=== PATIENT | female | born 1955 | race American Indian/Alaskan Native ===

== ENCOUNTER 2016-11-13 21:51 | Emergency (ER) | payer MEDICARE ==
[2016-11-13 23:47] LABS: Basophils % (Auto) 0.5 % (0.0-1.8); Hematocrit 34.8 % (30.3-42.9); Hemoglobin 11.4 gm/dl (10.1-14.3); Mean Corpuscular HGB Conc 33 % (30-34); Mean Corpuscular Hemoglobin 29 pg (28-32); Mean Corpuscular Volume 87 fl (79-97); Platelet Count 290 K/mm3 (140-440); Red Blood Count 3.99 M/mm3 (3.65-5.03); Red Cell Distribution Width 15.1 % (13.2-15.2)
[2016-11-14] LABS: BUN/Creatinine Ratio 10.66; Chloride 102.7 mmol/L (98-107); Potassium 4.6 mmol/L (3.6-5.0)
[2016-11-14 02:33] LABS: Urine Drugs of Abuse Note Disclamer
[2016-11-14 03:08] LABS: Bacteria,Urine 1+ /HPF (Negative); Bilirubin,Urine NEG (Negative); Blood,Urine NEG (Negative); Ketones,Urine TR mg/dL (Negative); Leukocyte Esterase,Urine SM (Negative); Mucus,Urine 1+ /HPF; Nitrite,Urine NEG (Negative)
[2016-11-14] MEDS ORDERED: HALDOL PO SCH ×2 (22:00→23:00)
--- NOTE | 2016-11-14 22:11 | Emergency Department Report ---
ED General Adult HPI - General Chief complaint: Psych Stated complaint: MH EVAL Time Seen by Provider: 11/14/16 22:08 Source: patient, RN notes reviewed Mode of arrival: Ambulatory Limitations: Other (patient is disorganized, actively psychotic, poor historian) - History of Present Illness Initial comments: This is a 60-year-old female. She is previously unknown to me. Has a past medical history of hypertension, unspecified psychiatric disease. Presents to the ER with psychiatric complaints. Requests an injection of her psychiatric medication. She is worried that her Haldol has crack in it, and that her quetiapine has "reefer" in it. Patient denies headache, neck pain, abdominal pain, chest pain, shortness of breath. She denies irritative and obstructive urinary symptoms. She denies access to guns and firearms.s. Patient cannot describe exacerbating or relieving factors. -: unknown Radiation: other (per history of present illness) Quality: other (history of present illness) Consistency: other (as per history of present illness) Improves with: other ( as per history of present illness) Worsens with: other (as per history of present illness) - Related Data Home Medications Medication Instructions Recorded Confirmed Last Taken Benztropine [Cogentin] 2 mg PO BID 11/14/16 11/14/16 11/13/16 Haloperidol [Haldol] 8 mg PO BID 11/14/16 11/14/16 11/13/16 Lisinopril [Zestril TAB] 40 mg PO QDAY 11/14/16 11/14/16 11/13/16 QUEtiapine [SEROquel] 400 mg PO BID 11/14/16 11/14/16 11/13/16 Allergies Allergy/AdvReac Type Severity Reaction Status Date / Time No Known Allergies Allergy Unverified 11/13/16 23:16 ED Review of Systems ROS: Stated complaint: MH EVAL Other details as noted in HPI Constitutional: denies: fever Eyes: denies: vision change Respiratory: denies: cough Cardiovascular: denies: chest pain Gastrointestinal: denies: abdominal pain Genitourinary: denies: urgency Musculoskeletal: denies: back pain Neurological: denies: weakness Psychiatric: denies: homicidal thoughts, suicidal thoughts ED Past Medical Hx - Social History Smoking Status: Never Smoker Substance Use Type: None - Medications Home Medications: Home Medications Medication Instructions Recorded Confirmed Last Taken Type Benztropine [Cogentin] 2 mg PO BID 11/14/16 11/14/16 11/13/16 History Haloperidol [Haldol] 8 mg PO BID 11/14/16 11/14/16 11/13/16 History Lisinopril [Zestril TAB] 40 mg PO QDAY 11/14/16 11/14/16 11/13/16 History QUEtiapine [SEROquel] 400 mg PO BID 11/14/16 11/14/16 11/13/16 History ED Physical Exam - General General appearance: alert, in no apparent distress - Head Head exam: Present: atraumatic, normocephalic - Eye Eye exam: Present: normal appearance, EOMI. Absent: nystagmus - ENT ENT exam: Present: normal exam, normal orophraynx, mucous membranes moist - Neck Neck exam: Present: normal inspection, full ROM. Absent: tenderness, meningismus - Respiratory Respiratory exam: Present: normal lung sounds bilaterally. Absent: respiratory distress, wheezes, rales, rhonchi, stridor, chest wall tenderness - Cardiovascular Cardiovascular Exam: Present: regular rate, normal rhythm, normal heart sounds. Absent: bradycardia, tachycardia, irregular rhythm, systolic murmur, diastolic murmur, rubs, gallop - GI/Abdominal GI/Abdominal exam: Present: soft, normal bowel sounds. Absent: distended, tenderness, guarding, rebound, rigid, pulsatile mass - Extremities Exam Extremities exam: Present: normal inspection, full ROM, normal capillary refill. Absent: tenderness, pedal edema, joint swelling, calf tenderness - Back Exam Back exam: Present: normal inspection, full ROM. Absent: tenderness, CVA tenderness (R), CVA tenderness (L), muscle spasm, paraspinal tenderness, vertebral tenderness - Neurological Exam Neurological exam: Present: alert, oriented X3, normal gait, other (Extraocular movements intact. Tongue midline. No facial droop. Facial sensation intact to light touch in the V1, V2, V3 distribution bilaterally. 5 and 5 strength in 4 extremities.. Sensation is intact to light touch in 4 extremities.). Absent : motor sensory deficit - Psychiatric Psychiatric exam: Present: manic. Absent: homicidal ideation, suicidal ideation - Skin Skin exam: Present: warm, dry, intact, normal color. Absent: rash ED Course Vital Signs 11/13/16 11/14/16 11/14/16 23:05 20:11 23:36 Temperature 98.2 F 99 F Pulse Rate 99 H 100 H Respiratory 18 20 20 Rate Blood Pressure 108/76 Blood Pressure 121/83 [Left] O2 Sat by Pulse 98 96 Oximetry - Reevaluation(s) Reevaluation #1: 11/14/16 23:07 Differential diagnosis: Mood disorder, urinary tract infection, electrolyte imbalance, psychiatric decompensation Assessment and plan: 60-year-old female who is clearly disorganized, rambling, although not actively homicidal or suicidal. She is quite disorganized, strain of thoughts is irrational, and does not appear to be able to make rational or sound decisions. 1013 form was filled out. We will continue her current outpatient medications. At this point in time, I see no immediate medical contraindication to psychiatric admission/evaluation/consultation. The crisis team was informed. ED Medical Decision Making - Lab Data Result diagrams: 11/13/16 23:36 11/13/16 23:36 Vital Signs 11/13/16 11/14/16 23:05 20:11 Temperature 98.2 F Pulse Rate 99 H Respiratory 18 20 Rate Blood Pressure 108/76 O2 Sat by Pulse 98 Oximetry Lab Results 11/13/16 11/13/16 11/13/16 Range/Units 23:36 23:36 23:36 WBC 9.0 (4.5-11.0) K/mm3 RBC 3.99 (3.65-5.03) M/mm3 Hgb 11.4 (10.1-14.3) gm/dl Hct 34.8 (30.3-42.9) % MCV 87 (79-97) fl MCH 29 (28-32) pg MCHC 33 (30-34) % RDW 15.1 (13.2-15.2) % Plt Count 290 (140-440) K/mm3 Lymph % (Auto) 17.2 (13.4-35.0) % [place] % (Auto) 8.0 H (0.0-7.3) % Eos % (Auto) 2.0 (0.0-4.3) % Baso % (Auto) 0.5 (0.0-1.8) % Lymph # 1.5 (1.2-5.4) K/mm3 [place] # 0.7 (0.0-0.8) K/mm3 Eos # 0.2 (0.0-0.4) K/mm3 Baso # 0.0 (0.0-0.1) K/mm3 Seg Neutrophils % 72.3 H (40.0-70.0) % Seg Neutrophils # 6.5 (1.8-7.7) K/mm3 Sodium 142 (137-145) mmol/L Potassium 4.6 (3.6-5.0) mmol/L Chloride 102.7 (98-107) mmol/L Carbon Dioxide 27 (22-30) mmol/L Anion Gap 17 mmol/L BUN 16 (7-17) mg/dL Creatinine 1.5 H (0.7-1.2) mg/dL Estimated GFR 43 ml/min BUN/Creatinine Ratio 10.66 % Glucose 146 H (65-100) mg/dL Calcium 9.0 (8.4-10.2) mg/dL Urine Color (Yellow) Urine Turbidity (Clear) Urine pH (5.0-7.0) Ur Specific [place] (1.003-1.030) Urine Protein (Negative) mg/dL Urine Glucose (UA) (Negative) mg/dL Urine Ketones (Negative) mg/dL Urine Blood (Negative) Urine Nitrite (Negative) Urine Bilirubin (Negative) Urine Urobilinogen (<2.0) mg/dL Ur Leukocyte Esterase (Negative) Urine WBC (Auto) (0.0-6.0) /HPF Urine RBC (Auto) (0.0-6.0) /HPF U Epithel Cells (Auto) (0-13.0) /HPF Urine Bacteria (Auto) (Negative) /HPF Ur Transition Epith Cell /HPF Hyaline Casts /LPF Urine Mucus /HPF Urine Opiates Screen Urine Methadone Screen Ur Barbiturates Screen Ur Phencyclidine Scrn Ur Amphetamines Screen U Benzodiazepines Scrn Urine Cocaine Screen U Marijuana (THC) Screen Drugs of Abuse Note Plasma/Serum Alcohol < 0.01 (0-0.07) gm% 11/14/16 11/14/16 Range/Units 02:12 02:12 WBC (4.5-11.0) K/mm3 RBC (3.65-5.03) M/mm3 Hgb (10.1-14.3) gm/dl Hct (30.3-42.9) % MCV (79-97) fl MCH (28-32) pg MCHC (30-34) % RDW (13.2-15.2) % Plt Count (140-440) K/mm3 Lymph % (Auto) (13.4-35.0) % [place] % (Auto) (0.0-7.3) % Eos % (Auto) (0.0-4.3) % Baso % (Auto) (0.0-1.8) % Lymph # (1.2-5.4) K/mm3 [place] # (0.0-0.8) K/mm3 Eos # (0.0-0.4) K/mm3 Baso # (0.0-0.1) K/mm3 Seg Neutrophils % (40.0-70.0) % Seg Neutrophils # (1.8-7.7) K/mm3 Sodium (137-145) mmol/L Potassium (3.6-5.0) mmol/L Chloride (98-107) mmol/L Carbon Dioxide (22-30) mmol/L Anion Gap mmol/L BUN (7-17) mg/dL Creatinine (0.7-1.2) mg/dL Estimated GFR ml/min BUN/Creatinine Ratio % Glucose (65-100) mg/dL Calcium (8.4-10.2) mg/dL Urine Color [place] (Yellow) Urine Turbidity Cloudy (Clear) Urine pH 5.0 (5.0-7.0) Ur Specific [place] 1.020 (1.003-1.030) Urine Protein 30 mg/dl (Negative) mg/dL Urine Glucose (UA) Neg (Negative) mg/dL Urine Ketones Tr (Negative) mg/dL Urine Blood Neg (Negative) Urine Nitrite Neg (Negative) Urine Bilirubin Neg (Negative) Urine Urobilinogen 2.0 (<2.0) mg/dL Ur Leukocyte Esterase Sm (Negative) Urine WBC (Auto) 17.0 H (0.0-6.0) /HPF Urine RBC (Auto) 3.0 (0.0-6.0) /HPF U Epithel Cells (Auto) 16.0 H (0-13.0) /HPF Urine Bacteria (Auto) 1+ (Negative) /HPF Ur Transition Epith Cell 3 /HPF Hyaline Casts 20 /LPF Urine Mucus 1+ /HPF Urine Opiates Screen Presumptive negative Urine Methadone Screen Presumptive positive Ur Barbiturates Screen Presumptive negative Ur Phencyclidine Scrn Presumptive negative Ur Amphetamines Screen Presumptive negative U Benzodiazepines Scrn Presumptive negative Urine Cocaine Screen Presumptive negative U Marijuana (THC) Screen Presumptive negative Drugs of Abuse Note Disclamer Plasma/Serum Alcohol (0-0.07) gm% Critical care attestation.: If time is entered above; I have spent that time in minutes in the direct care of this critically ill patient, excluding procedure time. ED Disposition Clinical Impression: Mood disorder Disposition: DC/TX PSY HOSP/PSY UNIT Is pt being admited?: No Does the pt Need Aspirin: No Condition: Good Referrals: DAVID NICHOLE MD [Primary Care Provider] - 3-5 Days
[2016-11-14] MEDS ORDERED: COGENTIN PO SCH (23:00)
[2016-11-14 23:39] VITALS: BP 121/83
[2016-11-15] MEDS ORDERED: ZESTRIL PO SCH (10:00)
== END 2016-11-15 07:58 ==
LOC: ED 21:51 → EEVIPCON 21:51 → ED 11-15 07:58
DX: F39 Unspecified mood [affective] disorder (principal)
CPT/HCPCS: 36415; 80048; 81001; 85025; 99284; G0479; G0480; 80307; 80320

== ENCOUNTER 2016-11-19 19:12 | Emergency (ER) | payer MEDICARE ==
[2016-11-19 22:09] LABS: Urine Drugs of Abuse Note Disclamer
[2016-11-19 22:30] LABS: Bilirubin,Urine NEG (Negative); Blood,Urine NEG (Negative); Ketones,Urine NEG (Negative); Leukocyte Esterase,Urine MOD (Negative); Mucus,Urine FEW /HPF; Nitrite,Urine NEG (Negative); Protein,Urine <15 mg/dL mg/dL (Negative); Urobilinogen,Urine < 2.0 mg/dL (<2.0)
--- NOTE | 2016-11-20 10:18 | Emergency Department Report ---
ED Medical Clearance HPI - General Chief complaint: Psych Stated complaint: MED REFILL Time Seen by Provider: 11/20/16 10:16 Source: patient Mode of arrival: Ambulatory - History of Present Illness Initial comments: The patient is frankly delusional. She states she is here because a nurse at [facility] drove her here from her recent hospitalization. I don't know if this could be a possibility. However, the patient indeed was just discharged from [facility] after a psychiatric hospitalization about 5 days she was discharged on the . She showed up in the emergency department stating that she needed to get a taxi to [facility] because her brother. [facility] is located in the [facility]. So at least 2-1/2 hours from here. It is freely quite a history as to how this patient got to this facility. I have asked the psychiatric counselor's to call [facility] and discussed this with them. I have also asked the counselor to call the patient' s family and see if we could get some elucidation of this course of events. In any case the patient is frankly psychotic, delusional but not agitated. She cannot care for herself this condition. I do see that she has a discharge medicine reconciliation that shows very high doses of psychiatric medications. Apparently she has not been taking these medications for at least a day. I'm not really comfortable in restarting medications at that level. Therefore I have restarted her medications and a more moderate dose although it is still relatively high. In any case patient is not frankly hallucinating, agitated nor suicidal. -: year(s) Home medications: Home Medications Medication Instructions Recorded Confirmed Last Taken Benztropine [Cogentin] 2 mg PO BID 11/14/16 11/14/16 11/13/16 Haloperidol [Haldol] 8 mg PO BID 11/14/16 11/14/16 11/13/16 Lisinopril [Zestril TAB] 40 mg PO QDAY 11/14/16 11/14/16 11/13/16 QUEtiapine [SEROquel] 400 mg PO BID 11/14/16 11/14/16 11/13/16 Allergies/Adverse reactions: Allergies Allergy/AdvReac Type Severity Reaction Status Date / Time No Known Allergies Allergy Unverified 11/13/16 23:16 ED Review of Systems ROS: Stated complaint: MED REFILL Other details as noted in HPI Constitutional: denies: chills, fever Eyes: denies: eye pain, eye discharge, vision change ENT: denies: ear pain, throat pain Respiratory: denies: cough, shortness of breath, wheezing Cardiovascular: denies: chest pain, palpitations Endocrine: no symptoms reported Gastrointestinal: denies: abdominal pain, nausea, diarrhea Genitourinary: denies: urgency, dysuria, discharge Musculoskeletal: denies: back pain, joint swelling, arthralgia Skin: denies: rash, lesions Neurological: denies: headache, weakness, paresthesias Psychiatric: as per HPI Hematological/Lymphatic: denies: easy bleeding, easy bruising ED Past Medical Hx - Past Medical History Previous Medical History?: Yes Hx Psychiatric Treatment: Yes (Paranod schizophrenic) - Surgical History Past Surgical History?: No - Social History Smoking Status: Never Smoker Substance Use Type: None - Medications Home Medications: Home Medications Medication Instructions Recorded Confirmed Last Taken Type Benztropine [Cogentin] 2 mg PO BID 11/14/16 11/14/16 11/13/16 History Haloperidol [Haldol] 8 mg PO BID 11/14/16 11/14/16 11/13/16 History Lisinopril [Zestril TAB] 40 mg PO QDAY 11/14/16 11/14/16 11/13/16 History QUEtiapine [SEROquel] 400 mg PO BID 11/14/16 11/14/16 11/13/16 History ED Physical Exam - General Limitations: No Limitations General appearance: alert, in no apparent distress - Head Head exam: Present: atraumatic, normocephalic - Eye Eye exam: Present: normal appearance. Absent: scleral icterus - ENT ENT exam: Present: mucous membranes moist - Neck Neck exam: Present: normal inspection - Respiratory Respiratory exam: Present: normal lung sounds bilaterally. Absent: respiratory distress - Cardiovascular Cardiovascular Exam: Present: regular rate, normal rhythm. Absent: systolic murmur, diastolic murmur, rubs, gallop - GI/Abdominal GI/Abdominal exam: Present: soft, normal bowel sounds. Absent: distended, tenderness, guarding, rebound, rigid - Extremities Exam Extremities exam: Present: normal inspection - Back Exam Back exam: Present: normal inspection - Neurological Exam Neurological exam: Present: alert, oriented X3, CN II-XII intact, normal gait. Absent: motor sensory deficit - Psychiatric Psychiatric exam: Present: normal affect, normal mood - Skin Skin exam: Present: warm, dry, intact, normal color. Absent: rash ED Course Vital Signs 11/19/16 11/20/16 11/20/16 20:47 11:13 12:16 Temperature 98.6 F 98.0 F Pulse Rate 98 H 70 Respiratory 22 18 18 Rate Blood Pressure 156/106 Blood Pressure 178/94 [Right] O2 Sat by Pulse 98 99 98 Oximetry - Reevaluation(s) Reevaluation #1: 01/18/2013 and a transfer form has been executed. Medication reconciliation has been holding orders have been issued. I called the psychiatric counselor again to determine the status of this patient. I assume psychiatric placement is pending as I discussed with Andreas earlier this date. 11/20/16 19:04 ED Medical Decision Making - Lab Data Result diagrams: 11/20/16 11:25 11/20/16 11:25 Laboratory Results - last 24 hr 11/19/16 11/19/16 21:36 21:36 Urine Color Yellow Urine Turbidity Slightly-cloudy Urine pH 5.0 Ur Specific [place] 1.013 Urine Protein <15 mg/dl Urine Glucose (UA) Neg Urine Ketones Neg Urine Blood Neg Urine Nitrite Neg Urine Bilirubin Neg Urine Urobilinogen < 2.0 Ur Leukocyte Esterase Mod Urine WBC (Auto) 9.0 H Urine RBC (Auto) 2.0 U Epithel Cells (Auto) 14.0 H Ur Transition Epith Cell 1 Urine Mucus Few Urine Opiates Screen Presumptive negative Urine Methadone Screen Presumptive negative Ur Barbiturates Screen Presumptive negative Ur Phencyclidine Scrn Presumptive negative Ur Amphetamines Screen Presumptive negative U Benzodiazepines Scrn Presumptive negative Urine Cocaine Screen Presumptive negative U Marijuana (THC) Screen Presumptive negative Drugs of Abuse Note Disclamer ED Disposition Clinical Impression: Acute psychosis Schizophrenia Qualifiers: Schizophrenia type: unspecified Qualified Code(s): F20.9 - Schizophrenia, unspecified Hypertension Qualifiers: Hypertension type: essential hypertension Qualified Code(s): I10 - Essential ( primary) hypertension Disposition: DC/TX PSY HOSP/PSY UNIT Is pt being admited?: No Does the pt Need Aspirin: No Condition: Stable Instructions: Hypertension (ED) Time of Disposition: 19:06
[2016-11-20 11:33] LABS: Basophils % (Auto) 0.9 % (0.0-1.8); Eosinophils % (Auto) 1.3 % (0.0-4.3); Hematocrit 37.2 % (30.3-42.9); Hemoglobin 12.1 gm/dl (10.1-14.3); Mean Corpuscular HGB Conc 33 % (30-34); Mean Corpuscular Hemoglobin 28 pg (28-32); Mean Corpuscular Volume 86 fl (79-97); Platelet Count 332 K/mm3 (140-440); Red Blood Count 4.32 M/mm3 (3.65-5.03); Red Cell Distribution Width 15.1 % (13.2-15.2); White Blood Count 7.1 K/mm3 (4.5-11.0)
[2016-11-20 11:45] LABS: Anion Gap 18 mmol/L; Blood Urea Nitrogen 14 mg/dL (7-17); Carbon Dioxide 26 mmol/L (22-30); Chloride 101.6 mmol/L (98-107); Glucose 116 mg/dL (65-100); Potassium 3.7 mmol/L (3.6-5.0); Sodium 142 mmol/L (137-145)
[2016-11-20] MEDS ORDERED: ALUM-MAG HYDROX-SIMETH 200-200-20MG/5ML PO PRN (18:56)
[2016-11-20] MEDS ORDERED: TYLENOL PO PRN (18:56)
[2016-11-20] MEDS ORDERED: MILK OF MAGNESIA PO PRN (18:56)
[2016-11-20] MEDS ORDERED: ZESTRIL PO SCH ×2 (19:00→20:00)
[2016-11-20] MEDS ORDERED: COGENTIN PO SCH (22:00)
[2016-11-20] MEDS ORDERED: HALDOL PO SCH (22:00)
[2016-11-20 23:14] VITALS: BP 179/98
--- NOTE | 2016-11-21 01:29 | Event Note ---
Date: 11/21/16 Vital signs are reviewed. No recent events. awaits psychiatric placement Vital Signs 11/19/16 11/20/16 11/20/16 20:47 11:13 12:16 Temperature 98.6 F 98.0 F Pulse Rate 98 H 70 Respiratory 22 18 18 Rate Blood Pressure 156/106 Blood Pressure 178/94 [Right] O2 Sat by Pulse 98 99 98 Oximetry 11/20/16 11/20/16 20:26 22:05 Temperature Pulse Rate 79 Respiratory 20 Rate Blood Pressure 179/98 Blood Pressure [Right] O2 Sat by Pulse Oximetry
== END 2016-11-21 01:10 ==
LOC: ED 19:12 → EEVIPCON 19:12 → ED 11-21 01:10
DX: F23 Brief psychotic disorder (principal); F20.9 Schizophrenia, unspecified; I10 Essential (primary) hypertension
CPT/HCPCS: 36415; 80048; 80307; 81001; 85025; 99285; G0480; 80320